=== PATIENT | female | born 1980 | race Caucasian/White ===

== ENCOUNTER 2020-08-25 20:43 | Emergency (ER) | payer MEDICAID ==
[~2020-08-25] VITALS: Ht 149.9 cm; Wt 45.4 kg
[~2020-08-25 20:43] MED LIST: BACTRIM DS TABL1 TAB PO
[2020-08-25 20:51] VITALS: Ht 149.9 cm; Wt 45.4 kg
[2020-08-25] MEDS ORDERED: DOXYCYCLINE HY100 M2 PO (21:17)
[2020-08-25] MEDS ORDERED: CEPHALEXIN500 M1 PO (21:17)
[2020-08-25 22:29] VITALS: BP 132/75
== END 2020-08-25 22:23 | disposition home or self-care (01) ==
LOC: D.ER 20:43
DX: L02.414 Cutaneous abscess of left upper limb (principal)